=== PATIENT | male | born 1990 | race African-American/Black ===

== ENCOUNTER 2017-10-30 00:43 | Emergency (ER) | payer MEDICAID ==
[~2017-10-30] VITALS: Ht 167.6 cm; Wt 72.6 kg
[2017-10-30 01:00] VITALS: BP 116/71
[2017-10-30] MEDS ORDERED: FLONASE ALLERG9.9 ML NS (01:13)
--- NOTE | 2017-10-30 01:16 | Emergency Room Report ---
History of Present Illness General Chief Complaint: Sore Throat Source: Patient Present Illness HPI 27yom with 3 weeks sore throat History of "post nasal drip" Sore throat worse in the morning, who is after drinking water or eating something cold. No history of fevers chills, or cough No history of frequent pharyngitis, hoarseness, headache Allergies: Coded Allergies: No Known Allergies (Unverified , 10/30/17) Patient History Past Medical History: none Past Surgical History: none Pertinent Family History: none Social History: Denies: smoking, alcohol use, drug use Immunizations: UTD Reviewed Nursing Documentation: PMH: Agreed, PSxH: Agreed Review of Systems All Other Systems: negative except mentioned in HPI Physical Exam Vital Signs Date Time Temp Pulse Resp B/P (MAP) Pulse Ox O2 Delivery O2 Flow Rate FiO2 10/30/17 00:52 98.4 75 12 118/69 96 Room Air Sp02 EP Interpretation: reviewed, normal General Appearance: normal inspection, well appearing, no apparent distress, alert, GCS 15, non-toxic Head: normocephalic, atraumatic Eyes: bilateral eye PERRL, bilateral eye EOMI ENT: normal ENT inspection, hearing grossly normal, normal pharynx, no angioedema, normal voice, TMs + canals normal, uvula midline, moist mucus membranes, nasal congestion Neck: normal inspection, full range of motion, supple, thyroid normal, no meningismus, no bony tend Respiratory: normal inspection, lungs clear, normal breath sounds, no rhonchi, no respiratory distress, no retraction, no accessory muscle use, no wheezing, speaking full sentences Cardiovascular #1: regular rate, rhythm, no edema, no JVD, normal capillary refill Gastrointestinal: normal inspection, normal bowel sounds, non tender, soft, no mass, no peritonitis, non-distended, no guarding, no hernia, no pulsatile mass Genitourinary: no CVA tenderness Musculoskeletal: normal inspection, back normal, normal range of motion, no calf tenderness, pelvis stable, Hannah's Sign negative Neurologic: normal inspection, alert, oriented x3, responsive, baker doughnut III-XII nml as tested, motor strength/tone normal, cerebellar normal, normal gait, speech normal Psychiatric: normal inspection, judgement/insight normal, mood/affect normal, no suicidal/homicidal ideation, no delusions Skin: normal inspection, normal color, no rash Lymphatic: normal inspection, no adenopathy Medical Decision Making Diagnostic Impression: Primary Impression: Sore throat ER Course Vital signs stable, afebrile no Sign of bacterial infection oropharynx Sore throat is chronic likely due to postnasal drip Advise Flonase, hydration in the morning ER course: Patient has remained stable during ED stay. Disposition: Patient is to be discharged to home. Prescriptions given are flonase Patient is instructed to follow up with their primary care doctor within 5 days. . Strict return precautions discussed with patient such as fever, chills, worsening/severe pain, nausea, vomiting, which may indicate severe illness. Patient verbalizes understanding and agrees with plan. Please note that this Emergency Department Report was dictated using [employer] receiving clerk technology software, occasionally this can lead to erroneous entry secondary to interpretation by the dictation equipment Last Vital Signs Date Time Temp Pulse Resp B/P (MAP) Pulse Ox O2 Delivery O2 Flow Rate FiO2 10/30/17 00:52 98.4 75 12 118/69 96 Room Air Status: improved Disposition: HOME, SELF-CARE Condition: Improved Scripts Fluticasone Propionate (Flonase Allergy Relief) 9.9 Ml [place].susp 9.9 ML NS BID for sore throat for 7 Days, #1 UNIT Prov: JANIS PULIDO M.D. 10/30/17 Patient Instructions: Sore Throat Additional Instructions: - Drink a glass of water first thing each morning when you wake up to clear phlegm from throat - Use flonase as needed 2x a day for sinus congestion JANIS PULIDO M.D. Oct 30, 2017 01:16
[2017-10-30 01:33] VITALS: BP 116/71
== END 2017-10-30 01:34 | disposition home or self-care (01) ==
LOC: EMR 00:59
DX: R07.0 Pain in throat (principal)
CPT/HCPCS: 99283